=== PATIENT | female | born 1995 | race Caucasian/White ===

== ENCOUNTER 2019-12-26 13:57 | Outpatient (RCR) | payer OTHER, SELFPAY ==
[2019-12-27] MEDS: RHO(D) IMMUNE GLOBULIN 300 MCG SYRINGE IM (14:41)
== END 2020-03-25 23:59 | disposition home or self-care (01) ==
LOC: ANHLAB 13:57
PROVIDERS: Visit Provider Obstetrics & Gynecology
DX: Z29.13 Encounter for prophylactic Rho(D) immune globulin (principal); O36.0990 Maternal care for other rhesus isoimmunization, unspecified trimester, not applicable or unspecified; Z3A.00 Weeks of gestation of pregnancy not specified
CPT/HCPCS: 36415; 85461; 90384; 96372; J2790

== ENCOUNTER 2020-02-23 11:39 | Outpatient (RCR) | payer OTHER, SELFPAY | END 2020-03-13 10:37 | disposition home or self-care (01) | LOC: ANHOBOP 11:39 | PROVIDERS: Visit Provider Obstetrics & Gynecology | DX: O41.03X0 Oligohydramnios, third trimester, not applicable or unspecified (principal); Z3A.36 36 weeks gestation of pregnancy | CPT/HCPCS: 59025 ==

== ENCOUNTER 2020-03-09 19:56 | Observation (INO) | payer OTHER, SELFPAY ==
[2020-03-09 20:05] VITALS: BMI 27.5
[2020-03-09 20:09] VITALS: TEMP 36.8
--- NOTE | 2020-03-10 02:01 | OBADM ---
This patient, Micaela Fernandez, admitted to the OB room Labor/Delivery/Recovery 105 for observation. Patient/family oriented to hospital policies and general routines including ID bracelet, bed and alarms, visiting hours, pain management, procedures, bathroom and other care routines, personal items, smoking policy, room service/diet, and visiting hours. Patient/Family are encouraged to report perceived risks to care and to ask questions if they do not understand what they are told or what they should do.
--- NOTE | 2020-04-11 22:32 | PM.OBTRLD ---
OB - Triage/Final Diagnosis Final Diagnosis (1) False labor: Code(s): O47.9 - False labor, unspecified Status: Acute
== END 2020-03-09 22:55 | disposition home or self-care (01) ==
PROVIDERS: Admitting Provider Obstetrics & Gynecology; Visit Provider Obstetrics & Gynecology
DX: O47.1 False labor at or after 37 completed weeks of gestation (principal); Z3A.39 39 weeks gestation of pregnancy
CPT/HCPCS: G0378; G0379

== ENCOUNTER 2020-03-12 12:24 | Inpatient (IN) | payer OTHER, SELFPAY ==
[2020-03-11 12:30] VITALS: BMI 36.3
[2020-03-12] VITALS (72 sets, daily range): BP systolic 85–167; BP diastolic 39–149; PULSE 60–175; TEMP 36.6–36.9; O2SAT 94–100
[2020-03-12 13:35] LABS: Basophils Absolute Auto 0.1 K/mm3 (0.0-0.1); Basophils Percent Auto 0.5 % (0.2-1.2); Eosinophils Absolute Auto 0.1 K/mm3 (0-0.3); Eosinophils Percent Auto 0.6 % (0-4.4); Hematocrit 37.4 % (37.0-47.0); Hemoglobin 12.9 g/dL (12.0-15.0); Immature Granulocyte Absolute 0.11 K/mm3 (0.00-0.031); Lymphocytes Absolute Auto 1.94 K/mm3 (0.9-3.2); Lymphocytes Percent Auto 17.6 % (18.3-44.2); Mean Corpuscular HGB Conc 34.5 g/dl (32-36); Mean Corpuscular Hemoglobin 30.6 pg (26-34); Mean Corpuscular Volume 88.8 fl (80-100); Mean Platelet Volume 11.2 fl (7.4-10.4); Monocytes Absolute Auto 0.7 K/mm3 (0.1-0.6); Monocytes Percent Auto 6.1 % (2.6-8.5); Neutrophils Absolute Auto 8.2 K/mm3 (1.3-6.7); Neutrophils Percent Auto 74.2 % (45.5-73.1); Platelet Count Result 233 k/mm3 (150-375); Red Blood Count 4.21 M/mm3 (4.2-5.4); Red Cell Distribution Width 13.1 % (11.5-14.5)
--- NOTE | 2020-03-12 13:35 | LDADM ---
This patient, Micaela Fernandez, was admitted to Labor/Delivery/Recovery 105 on 03/12/20 at 12:24. Plans for labor, pain management and were discussed with patient. Patient/family oriented to hospital policies and general routines including ID bracelet, bed and alarms, visiting hours, pain management, procedures, bathroom and other care routines, personal items, smoking policy, room service/diet and guest tray routines, security routines, and visiting hours. Patient/Family are encouraged to report perceived risks to care and to ask questions if they do not understand what they are told or what they should do. See OBIX for further documentation.
[2020-03-12] MEDS: LACTATED RINGERS 1,000 ML 125 ML IV CONT ×2 (14:36→21:35)
[2020-03-12] MEDS: OXYTOCIN 30 UNITS/NS 500 ML 30 UNITS/500 ML BAG IV CONT (14:37)
--- NOTE | 2020-03-12 18:19 | WPDOBADMIT ---
Obstetrics - Admit Note Admission Note: record reviewed. Additions to the history and/or subsequent changes in the physical findings follow. 25 y/o at 39 3/7 weeks here with a gush of clear fluid at 10:30 today. RomPlus positive here on L&D. Now feeling more contractions on oxytocin. GBS neg. AVSS NST reactive TOCO: contractions every 4-5 min ABD soft, nontender, gravid, vertex EXT nontender Cervix 4/50/-2. Vertex. A: IUP at term with SROM. P: Augmenting labor. Anticipate .
[2020-03-12] MEDS: fentaNYL CITRATE INJ (*CRX) 100 MCG/2 ML VIAL 50 MCG IV PUSH (20:50)
--- NOTE | 2020-03-12 21:57 | WPDANESEPPF ---
Anes - Initial Pre Proc Eval Procedure: labor epidural Date/Time: 03/12/20 21:57 Surgeon: Maximo Dodd MD Pre Op Diagnosis: labor pain Pre Op Diagnosis: SROM Patient Data Age: 25 Gender: F Height: 1.52 m Weight: 84.5 kg Last Vital Signs Temp 36.9 C 03/12/20 20:00 Pulse 81 03/12/20 21:56 BP 99/62 L 03/12/20 21:56 Pulse Ox 99 03/12/20 21:56 Allergies Allergy/AdvReac Type Severity Reaction Status Date / Time No Known Allergies Allergy Verified 12/27/19 14:28 Home Medications Medication Instructions Recorded Confirmed Type PNV cmb#95-ferrous fumarate-FA 1 tablet PO DAILY 02/17/20 03/12/20 History [] Laboratory Tests 03/12/20 03/12/20 03/12/20 13:30 13:30 13:30 WBC 11.0 K/mm3 H K/mm3 (4.5-10.0) RBC 4.21 M/mm3 M/mm3 (4.2-5.4) Hgb 12.9 g/dL g/dL (12.0-15.0) Hct 37.4 % % (37.0-47.0) MCV 88.8 fl fl (80-100) MCH 30.6 pg pg (26-34) MCHC 34.5 g/dl g/dl (32-36) RDW 13.1 % % (11.5-14.5) Plt Count 233 k/mm3 k/mm3 (150-375) MPV 11.2 fl H fl (7.4-10.4) Immature Gran % (Auto) 1.0 % H % (0-0.5) Neut % (Auto) 74.2 % H % (45.5-73.1) Lymph % (Auto) 17.6 % L % (18.3-44.2) [place] % (Auto) 6.1 % % (2.6-8.5) Eos % (Auto) 0.6 % % (0-4.4) Baso % (Auto) 0.5 % % (0.2-1.2) Lymph # (Auto) 1.94 K/mm3 K/mm3 (0.9-3.2) [place] # (Auto) 0.7 K/mm3 H K/mm3 (0.1-0.6) Eos # (Auto) 0.1 K/mm3 K/mm3 (0-0.3) Baso # (Auto) 0.1 K/mm3 K/mm3 (0.0-0.1) Abs Immat Gran (auto) 0.11 K/mm3 H K/mm3 (0.00-0.031) Absolute Neuts (auto) 8.2 K/mm3 H K/mm3 (1.3-6.7) Absolute Nucleated RBC 0.0 K/mm3 K/mm3 (0.0-0.012) Nucleated RBC % 0.0 % % (0.0-0.2) RPR Pending Blood Type O Negative Antibody Screen Negative Patient hx anesthesia problems: none Family hx anesthesia problems: none [facility] Family History Family History (Updated 02/17/20 @ 12:32 by Payam Eaton RN) Father High cholesterol Hypertension Mother High cholesterol Hypertension Social History Social History Smoking status: Never smoker Substance use: never Gender identity (if verbalized by the patient): Female Spiritual care concerns: No Anes - Eval Final PreProcedure Day of Procedure 03/12/20 21:57 Patient weight: obese Heart: regular rate and rhythm Lungs: clear to auscultation and normal air movement Airway: Mallampati scale Neurological: alert and oriented ASA classification: II Anesthetic plan: proceed Anesthesia type and monitoring: regional epidural and standard monitoring Informed Consent: The patient's anesthetic plan and its attendant risks and benefits were discussed with the patient/family/POA. Questions were solicited and answers provided to the satisfaction of the patient/family/POA.
[2020-03-12] MEDS: ONDANSETRON INJ 4 MG/2 ML VIAL IV PUSH (22:58)
[2020-03-13] VITALS (25 sets, daily range): BP systolic 98–120; BP diastolic 53–102; PULSE 66–244; RESP 12–18; TEMP 36.5–37.2; O2SAT 97–100
[2020-03-13] MEDS: OXYTOCIN 30 UNITS/NS 500 ML 30 UNITS/500 ML BAG 125 UNITS IV CONT (01:17)
--- NOTE | 2020-03-13 01:23 | PM.OBPRVD ---
OB - Delivery Note Procedure Delivery date: 03/13/20 Procedure: Intrapartal events: None Induction method: none Delivery augmentation: pitocin Delivery monitor: external FHT and external uterine Route of delivery: Laceration Description: None Specimen: Yes (cord blood) Estimated blood loss (mL): 45 Anesthesia type: Epidural Disposition: PACU Complications: None Narrative: 25 y/o at 39 4/7 weeks gestation who presented to the hospital after a gush of fluid. SROM was diagnosed. Oxytocin was administered intravenously. She received an epidural for pain control. Her labor progressed and her cervix dilated completely. She pushed with good effort and delivered the 's head to the perineum. A loose nuchal cord was splinted and the body delivered. The cord was reduced. The nose and mouth were bulb suctioned. After a delay, the cord was clamped and cut. The infant was handed off the field. Cord blood was collected. The placenta delivered spontaneously and was grossly normal in appearance. The usual 3 vessel cord was noted. The perineum was intact. The patient was taken to recovery room in stable condition. The infant went to the nursery in stable condition. I was present and scrubbed for the entire delivery. Baby Date of : 03/13/20 Time of : 12:49 Weeks of gestation at delivery: 39 gender: Female Weight (pounds): 6 Weight (ounces): 9 presentation: vertex position: Right Occiput Anterior Placenta delivery description: Spontaneous and Normal Configuration cord vessel description: 3 Vessels and Nuchal Cord score one minute: 8 score five minutes: 9
--- NOTE | 2020-03-13 01:26 | PM.OBDSVD ---
DS: Admitting Diagnosis Admitting Diagnosis Admitting Diagnosis: SROM DS: Discharge Diagnosis Discharge Diagnosis (1) (normal spontaneous vaginal delivery): Code(s): O80 - Encounter for full-term uncomplicated delivery Status: Acute OB - DS: Summary OB Procedures : None OB Procedures Intrapartum: Spontaneous Vag Delivery OB Procedures: : RHo (D) lg DS: Data Data Completed and Pending Labs on day of discharge: Labs from last 24 hours 03/12/20 03/12/20 03/12/20 13:30 13:30 13:30 WBC 11.0 H RBC 4.21 Hgb 12.9 Hct 37.4 MCV 88.8 MCH 30.6 MCHC 34.5 RDW 13.1 Plt Count 233 MPV 11.2 H Immature Gran % (Auto) 1.0 H Neut % (Auto) 74.2 H Lymph % (Auto) 17.6 L [place] % (Auto) 6.1 Eos % (Auto) 0.6 Baso % (Auto) 0.5 Lymph # (Auto) 1.94 [place] # (Auto) 0.7 H Eos # (Auto) 0.1 Baso # (Auto) 0.1 Abs Immat Gran (auto) 0.11 H Absolute Neuts (auto) 8.2 H Absolute Nucleated RBC 0.0 Nucleated RBC % 0.0 RPR Pending Blood Type O Negative Antibody Screen Negative Discharge Plan Discharge Attending physician on discharge: Maximo Dodd Discharging Clinician: Maximo Dodd Patient Disposition: Home, Self-Care Activity: pelvic rest Diet: regular Discharge Instructions: Call or return if temperature above 100.4? F, increased abdominal pain, increased vaginal bleeding or any new problems. Stand Alone Forms: General Discharge Information Follow-up/Referrals: Maximo Dodd MD [Physician] - 6 Weeks Discharge Medications: New ibuprofen 600 mg tablet 600 mg PO Q6H PRN (Reason: cramps) Qty: 30 RF: 0 No Action PNV cmb#95-ferrous fumarate-FA [] 28 mg iron- 800 mcg Tablet 1 tablet PO DAILY RF: 0 Date of admission: 03/12/20 12:24 Primary Care Provider: PHYSICIAN,GIS APPLICATION DEVELOPER Admitting Provider: Maximo Dodd Attending physician on admission: Maximo Dodd Condition: Stable
[2020-03-13] MEDS: IBUPROFEN 600 MG TABLET PO ×3 (02:41→17:07)
[2020-03-13] MEDS: WITCH HAZEL 40 PADS 1 PAD TOPICAL (02:44)
[2020-03-13] MEDS: LORATADINE 10 MG TABLET PO (02:55)
--- NOTE | 2020-03-13 03:30 | OBPPTRN ---
Patient transferred to post room #290 via wheelchair with in crib. Support person present. Oriented to unit, room, information board, rooming in, admission packet and security measures. Patient verbalizes understanding.
[2020-03-13 03:31] LABS: Benzodiazepines Screen Urine Negative (Negative)
[2020-03-13 03:32] LABS: Amphetamine Screen Urine Negative (Negative); Cannabinoid Screen Urine Negative (Negative); Cocaine Screen Urine Negative (Negative); Methadone Screen Urine Negative (Negative); Opiate Screen Urine Negative (Negative); Phencyclidine Screen Urine Negative (Negative)
[2020-03-13 03:48] LABS: Barbiturate Screen Urine Negative (Negative)
[2020-03-13 07:58] LABS: Rapid Plasma Reagin Non-Reactive (NonReactive)
[2020-03-13] MEDS: DOCUSATE SODIUM 100 MG CAPSULE PO ×2 (08:18→17:07)
[2020-03-13] MEDS: MULTIVIT/MIN/PREN/FOL AC/IRON TABLET 1 TAB PO (08:18)
[2020-03-13] MEDS: LANOLIN (LANSINOH) 7.5 GM CREAM 1 APPLIC TOPICAL (08:19)
--- NOTE | 2020-03-13 11:30 | PC.NURSE ---
Consulted with patient, mother reports difficulties and discomfort with feeding. Mother states she attempted with first child and quickly switched to pump and bottle feeding due to latch issues. Both nipples are tender, skin is reddened on right. Nipple care reviewed. Mother would like to breastfeed this . Reviewed feeding cues, frequencies, duration of feedings, feeding elimination flow sheet, and signs of adequate intake. Demonstrated stimulation techniques to wake for feeding. Assisted with to breast. Reviewed positioning/alignment in cross cradle, holding breast in U hold and guided asymmetrical latch on. Infant was able to latch correctly. Infant nursed eagerly, with steady draws and frequent swallowing noted. Reviewed signs of a correct latch, effective nursing and suck swallow ratio. Infant was able to maintain latch without discomfort to mother. Mother reports she has been using cradle and ifnant has not been latched this deeply. Suggested mother stimulate while feeding to keep awake and nursing effectively for increased intake and to assist with maintaining deep latch. Instructed mother to call out for RN assistance if she is unable to latch for feeding or she has discomfort with nursing. Instructed feeding should be initiated three hours from start of last feeding or if feeding cues are noted before. Mother voiced understanding of information shared.
[2020-03-13] MEDS: ACETAMINOPHEN 325 MG TABLET 650 MG PO (11:32)
[2020-03-14 05:33] LABS: Hematocrit 34.9 % (37.0-47.0); Hemoglobin 11.8 g/dL (12.0-15.0)
[2020-03-14 07:25] VITALS: BP 96/58; PULSE 70; RESP 18; TEMP 36.6; O2SAT 98
--- NOTE | 2020-03-14 07:42 | WPDANLDPN2 ---
Anes-Prog Note L&D Date/Time: 03/14/20 07:42 Comfortable throughout: labor and delivery Neuraxial method: epidural Epidural/Spinal procedure site: clean & non-tender Neuro status: Neuro function grossly intact. Cardiovascular status: normal Respiratory status: normal Airway patency: baseline Mental status: baseline Post-Op hydration status: normal Vital Signs: Last Vital Signs Temp 37.1 C 03/13/20 18:55 Pulse 72 03/13/20 18:55 Resp 12 03/13/20 18:55 BP 107/63 03/13/20 18:55 Pulse Ox 97 03/13/20 18:55 Pain score (VAS): 1 Post-procedural complaints: none Patient feedback: Patient satisfied with anesthetic care.
[2020-03-14 08:15] VITALS: PULSE 70; RESP 18; O2SAT 98
[2020-03-14] MEDS: MULTIVIT/MIN/PREN/FOL AC/IRON TABLET 1 TAB PO (08:24)
[2020-03-14] MEDS: IBUPROFEN 600 MG TABLET PO (08:24)
--- NOTE | 2020-03-14 08:35 | PC.NURSE ---
Mother is able to independently latch with appropriate positioning/alignment. She denies any nipple discomfort, is feeding as required and waking infant to feed if needed. Infant has had at least 8 effective feedings in the past 24 hours, and is currently meeting outcomes for weight, output, jaundice and feeding frequencies. Mother states she feels confident to continue effective at home. Infant is more awake and eagerly latching. Mother is concerned with if infant is getting enough with , stressed output, weight and jaundice are all WNL Reviewed transition to breast milk, signs of adequate intake, and engorgement/relief. Instructed to call ICP if intake/output less than required. Reviewed regular medications mother is taking. Information provided per Meagan. Reviewed community resources on the [facility] website and in the Mom/Baby guide. Information on outpatient services provided. Mother has no further questions at this time.
--- NOTE | 2020-03-14 08:53 | PM.OBPNVD ---
OB - PN: Subj Subjective Date/time seen: 03/14/20 08:53 Narrative: Pain OK. Would like to go home. OB - PN: Obj Data Labs CBC & Chem 7: 03/14/20 05:18 Labs: Laboratory Results - last 24 hr 03/14/20 03/14/20 05:18 05:18 Hgb 11.8 L Hct 34.9 L Blood Type O Negative Antibody Screen TNP Screen Negative Baby's Blood Type O pos Baby's CHRISTY Negative Doses of RhIg Required 1 OB - PN A/P Plan Comments: A: PPD#1, doing well. P: Home to f/u 6 weeks. Exam Psych: Other: AVSS ABD soft, nontender, fundus firm EXT nontender
[2020-03-14] MEDS: RHO(D) IMMUNE GLOBULIN 300 MCG SYRINGE IM (10:07)
--- NOTE | 2020-03-14 11:05 | PC.NURSE ---
1000-Patient was given the opportunity to view the discharge video Mother & Baby Care, The First Two Weeks and to ask questions. Patient declined viewing the video and has been given the mother/baby guide for home reference.
[2020-03-15 11:34] VITALS: BP 110/73; PULSE 76; RESP 20
== END 2020-03-14 11:01 | disposition home or self-care (01) | DRG 560 ==
LOC: ANHLDR 03-13 01:27 → ANHOB2 03-13 04:07
PROVIDERS: Admitting Provider Obstetrics & Gynecology; Visit Provider Obstetrics & Gynecology
DX: O69.81X0 Labor and delivery complicated by cord around neck, without compression, not applicable or unspecified (principal); Z37.0 Single live birth; Z3A.39 39 weeks gestation of pregnancy; O99.214 Obesity complicating childbirth; E66.9 Obesity, unspecified
CPT/HCPCS: 36415; 80307; 85014; 85018; 85025; 85461; 86592; 86850; 86900; 86901; 90384; A9270; J2405; J2590; J2790; J2795; J3010; J7120